=== PATIENT | female | born 1990 | race Caucasian/White ===

== ENCOUNTER 2016-06-08 01:03 | Inpatient (IN) | payer SELFPAY ==
--- NOTE | ~2016-06-08 | DS ---
Discharge Summary [facility] [address] [place]. [address] NAME: ALEXANDER GONZALEZ : 88 STATUS : ADM IN [facility]#: [id number] AGE: 25 ADM/REG DATE : 06/08/16 MR#: [id number] REPORT SERV DATE: 06/12/16 DICTATED BY: Liz HENDERSON DATE: 06/12/16 REPORT STATUS : Draft TRANSCRIBED BY: LUL DATE: 06/12/16 ADMISSION DATE: 06/08/2016 DISCHARGE DATE: 06/12/2016 DIAGNOSES AT THE TIME OF DISCHARGE: Diabetic ketoacidosis, present on admission, resolved, insulin-requiring diabetes, uncontrolled, influenza B acute, present on admission, resolved, hypokalemia, resolved, hypomagnesemia, resolved, and hypophosphatemia, resolved. CONSULTS: None. PROCEDURES: None. BRIEF SUMMARY: A 25-year-old female with known diabetes with difficulty arranging insulin therapy due to cost, was admitted with acute illness and found to be in DKA, placed in intermediate care on aggressive IV insulin replacement, electrolyte replacement, and aggressive IV fluids. The patient responded appropriately to therapy with correction of her ketoacidosis and was subsequently transitioned to a combination of basal bolus and correction insulin. She was also found to be influenza positive, which likely is the nidus behind her ketoacidosis. This was treated with Tamiflu 75 mg b.i.d. for a five-day protocol. The patient was transitioned to a non-monitored floor. She improved. She was seen and evaluated by diabetes education. On 06/12, she was felt stable to discharge home. Her outpatient therapy will be Levemir FlexPen 35 units b.i.d. and NovoLog FlexPen 7 units with meals. She will follow up with her primary care provider in approximately two weeks. We will also provide her with a major test strips and lancets. The patient will also get Tamiflu. She has three additional doses, to take one this afternoon and two for tomorrow, which she will complete her five days of therapy. Further recommendations for treatment pending outpatient evaluation. ILIANA/LUL Liz Henderson M.D. / [id number] CC: Liz Henderson M.D.
--- NOTE | ~2016-06-08 | HP ---
History And Physical [facility] [address] [place]. [address] NAME: ALEXANDER MARIE : 88 STATUS : ADM IN [facility]#: [id number] AGE: 25 ADM/REG DATE : 06/08/16 MR#: [id number] REPORT SERV DATE: 06/08/16 DICTATED BY: KEVIN GILBERT DATE: 06/08/16 REPORT STATUS : Draft TRANSCRIBED BY: MODL DATE: 06/08/16 DATE OF ADMISSION: 06/08/2016 CHIEF COMPLAINT: High blood sugars. HISTORY OF PRESENT ILLNESS: This is a 25-year-old female with a history of insulin dependent diabetes mellitus, presents to the emergency room at [facility], with the above-mentioned complaint. History is obtained from the patient and reviewing data available on the [employer] system. According to the patient, she was recently diagnosed with diabetes a few days before gi last year. Since then, she had been on insulin therapy. She was supposed to take Levemir insulin along with short acting, but says she could not afford her Levemir and in the last few days, she has not used it. Since then, her blood sugars have been climbing. She had nausea and started feeling very poorly. Today, she was brought to the emergency room to be evaluated because her blood sugars were too high to be recorded. In the emergency room, initial evaluation showed a blood sugar greater than 600. She had moderate acetone in her serum. Her anion gap was 24 and she was in diabetic ketoacidosis. Hospitalist Service is asked to admit her for further evaluation and treatment. At the time of my evaluation, she denied any chest pain, palpitations, or orthopnea. She had no cough, hemoptysis, night sweats, or weight loss. She denied any recent falls or loss of consciousness. She denied any fevers, chills, nausea, vomiting, diarrhea, hematemesis, hematochezia, or hematuria. She had no dysuria. No other history of recent travel or exposures other than those mentioned above. PAST MEDICAL HISTORY: Significant for history of insulin-dependent diabetes mellitus. SOCIAL HISTORY: She has about [id number] smoking history and continues to do so. Denies alcohol use or recreational drug use. She works in a convenience store. FAMILY HISTORY: Noncontributory. MEDICATIONS AT HOME: Her medications at home were reviewed by me in the chart today and reordered by me. REVIEW OF SYSTEMS: As in history of present illness. All other systems reviewed in detailed and are quite unremarkable. PHYSICAL EXAMINATION: GENERAL: This is a pleasant 25-year-old, not in any acute distress. HEENT: Her head is atraumatic, normocephalic. She is alert, awake, oriented to time, place, and person. Her pupils are equal, reacting to light and accommodating. External ocular muscles are intact. Membranes are moist and pink. Sclerae nonicteric. History And Physical [address] [place]. [address] NAME: ALEXANDER MARIE : 88 STATUS : ADM IN [facility]#: [id number] AGE: 25 ADM/REG DATE : 06/08/16 MR#: [id number] REPORT SERV DATE: 06/08/16 DICTATED BY: KEVIN GILBERT DATE: 06/08/16 REPORT STATUS : Draft TRANSCRIBED BY: LUL DATE: 06/08/16 NECK: Supple with no jugular venous distention, lymphadenopathy, or thyromegaly. LUNGS: Clear to auscultation with no wheezes, rubs, or crackles. HEART: Heart sounds were regular with no murmurs, rubs, or gallops. ABDOMEN: Soft, nontender. Bowel sounds are present. EXTREMITIES: Showed no cyanosis, clubbing, or edema. NEUROLOGIC: Grossly intact. No focal sensory or motor deficits. Higher functions appeared intact. Gait was normal. VITAL SIGNS: Showed a temperature of 97.5, pulse 110, respirations 20 a minute, and blood pressure was 136/91. Oxygen saturations were 99% on room air. LABORATORY DATA: Reviewed on the [employer] system showed a pH of 7.14 on arterial blood gas, pCO2 was 11.2, pO2 was 117, and bicarb was 3.7. Her sodium was 134, potassium 3.6, chloride 105, CO2 was 5, BUN was 6 with a creatinine of 1.22, and blood glucose was 600. Her alkaline phosphatase was 124. AST and ALT were within normal limits. She had moderate acetone in her serum. Troponin was 0.02 and CBC showed essentially normal values. Urinalysis today showed 30 protein, 80 ketones, otherwise unremarkable. A 12-lead EKG done in the emergency room was reviewed and interpreted by me. There is sinus bradycardia with a rate of 103, otherwise without any acute ST elevations. Films of the chest x-ray were reviewed by me on the PACS today and interpreted by me. There is normal bony architecture with no cardiomegaly. Lung lara showed no infiltrates consolidations or pleural effusions. IMPRESSION: 1. Diabetic ketoacidosis. 2. Hyperglycemia with blood sugars greater than 600. PLAN: We will admit Ms. Marie to the Hospitalist Service to Medical Intermediate Care Unit for close monitoring. We will follow diabetic ketoacidosis protocol. She has an anion gap of 24. We will start her on fluid boluses, insulin infusion, follow basic metabolic profile, and replace electrolytes and potassium as needed. We will keep her n.p.o. for now. We will go ahead and follow her venous pH as well and replace bicarb as needed. Right now, she will receive 2 amps in scheduled order. I have also placed her on unfractionated heparin for DVT prophylaxis while here. She will need shop laborer to address issues with her including some help for procuring here Levemir. I have discussed the above plans with the patient, her questions were answered, and she is agreeable to the above recommendations. Please see today's orders for details. Hospitalist Service will be following her during her stay here. /LUL Kevin Gilbert M.D. History And Physical [address] [address] NAME: ALEXANDER MARIE : 88 STATUS : ADM IN [facility]#: [id number] AGE: 25 ADM/REG DATE : 06/08/16 MR#: [id number] REPORT SERV DATE: 06/08/16 DICTATED BY: KEVIN GILBERT DATE: 06/08/16 REPORT STATUS : Draft TRANSCRIBED BY: MODJaxson DATE: 06/08/16 / [id number] CC: Liz Henderson M.D.
[2016-06-08 01:27] LABS: BE (BASE EXCESS) -22.7 MEQ/L (0 +/- 2.5); HCO3 (ACTUAL BICARBONATE) 3.7 MEQ/L (23-27); HEMOBLOGIN CONTENT 15.1 G/DL (12-16); INSTRUMENT SERIAL # 8087; METHEMOGLOBIN 0.4 % (0-3); O2 CONTENT 20.7 VOL% (18-24); PCO2 (CO2 TENSION) 11 MMHG (35-45); PO2 (O2 TENSION) 117 MMHG (79-93); SAMPLE Arterial; pH 7.14 (7.37-7.43)
[2016-06-08 01:29] LABS: ACETONE MODERATE
[2016-06-08 01:34] LABS: A/G RATIO 0.8 (0.7-1.9); ALBUMIN 3.4 G/DL (3.5-5.0); ALKALINE PHOSPHATASE 124 U/L (45-117); BUN (BLOOD UREA NITROGEN) 6 MG/DL (6-23); CHLORIDE, SERUM 105 MMOL/L (96-112); CREATININE 1.22 MG/DL (0.55-1.02); GFR AFRICAN AMERICAN 71 ML/MIN (>=60); GFR NON AFRICAN AMERICAN 61 ML/MIN (>=60); GLOBULIN 4.5 G/DL (2.5-4.1); POTASSIUM, SERUM 3.6 MMOL/L (3.5-5.3); SGOT(AST) 10 U/L (5-40); SGPT(ALT) 20 U/L (5-65); SODIUM, SERUM 134 MMOL/L (135-148); TOTAL BILIRUBIN 0.4 MG/DL (0-1.2); TOTAL PROTEIN 7.9 G/DL (6.0-8.5)
[2016-06-08 01:34] LABS: HCG SERUM QUANTITATIVE <1.0 IU/L (0-6); TROPONIN I <0.02 NG/ML (<0.05)
[2016-06-08 01:36] LABS: CO2 (CARBON DIOXIDE) 5 MMOL/L (24-34); GLUCOSE, SERUM 600 MG/DL (60-99)
[2016-06-08 02:02] LABS: BASOPHILS 0.8 %; BASOPHILS ABSOLUTE 0.06 10/3/uL (0.0-0.16); EOSINOPHILS 0 %; ER CBC TAT 0 Hrs 03 Mins; HEMOGLOBIN 15.1 g/dL (12.0-16.0); IMMATURE GRANULOCYTES 0.8 %; LYMPHOCYTES 17.6 %; LYMPHOCYTES ABSOLUTE 1.35 10/3/uL (0.67-4.30); MEAN CORPUS HGB CONC 34.3 g/dL (32.0-36.0); MEAN CORPUSCULAR HEMOGLOB 29.8 pg (26.0-34.0); MONOCYTES 7.8 %; NEUTROPHILS ABSOLUTE 5.58 10/3/uL (2.02-8.40); PLATELET COUNT 174 10/3/uL (150-400); RED CELL COUNT 5.06 10/6/uL (4.0-5.6); WHITE BLOOD CELLS 7.7 10/3/uL (4.5-10.5)
[2016-06-08 02:03] LABS: IMMATURE GRANULOCYTES ABSOLUTE 0.06 10/3/uL (0.0-0.11); MANUAL DIFF NO %
[2016-06-08 02:26] LABS: BAND NEUTROPHILS 17 %; ER DIFF TAT 0 Hrs 27 Mins; LYMPHOCYTES 18 %; LYMPHOCYTES ABSOLUTE (CALC) 1.39 10/3/uL (0.67-4.30); MONOCYTES 10 %; MONOCYTES ABSOLUTE (CALC) 0.77 10/3/uL (0.21-1.20); NEUTROPHILS ABSOLUTE (CALC) 5.54 10/3/uL (2.02-8.40); RBC MORPHOLOGY NORM (NORMAL); SEGMENTED NEUTROPHIL (0) 55 %; TOTAL NUCLEATED CELLS 100
[2016-06-08 02:27] LABS: PLATELET ESTIMATE ADQ (ADEQUATE)
[2016-06-08 02:59] LABS: ASCORBIC ACID (UR NOT ORDER) NEG (NEG); BILIRUBIN, URINE NEGATIVE (NEG); ER URINALYSIS TAT 0 Hrs 00 Mins; KETONE, URINE 80 MG/DL (NEG); LEUKOCYTE ESTERASE(NOT OR NEG (NEG); NITRITE (URINE) NEG (NEG); WBC (NOT ORDERED) (RFLEX) 1 (0-5)
[2016-06-08] MEDS ORDERED: NOVOLOG SC (03:16)
[2016-06-08 05:55] LABS: HEMATOCRIT 41.5 % (36.0-48.0); HEMOGLOBIN 14.1 g/dL (12.0-16.0); MEAN CORPUSCULAR HEMOGLOB 29.2 pg (26.0-34.0); MEAN CORPUSCULAR VOLUME 85.9 fL (80-100); MEAN PLATELET VOLUME 12.8 fL (9.2-13.0); PLATELET COUNT 153 10/3/uL (150-400); RBC DISTRIBUTION WIDTH 15.8 % (12.0-16.0); RED CELL COUNT 4.83 10/6/uL (4.0-5.6); WHITE BLOOD CELLS 7.9 10/3/uL (4.5-10.5)
[2016-06-08 05:56] LABS: MANUAL DIFF YES %
[2016-06-08 06:20] LABS: BUN (BLOOD UREA NITROGEN) 4 MG/DL (6-23); CALCIUM, SERUM 7.8 MG/DL (8.5-10.4); CHLORIDE, SERUM 111 MMOL/L (96-112); CREATININE 0.87 MG/DL (0.55-1.02); GFR AFRICAN AMERICAN 107 ML/MIN (>=60); GFR NON AFRICAN AMERICAN 92 ML/MIN (>=60); SODIUM, SERUM 138 MMOL/L (135-148); ULTRASENSITIVE TSH 0.656 MCIU/ML (0.358-3.740)
[2016-06-08 06:33] LABS: POTASSIUM, SERUM 2.8 MMOL/L (3.5-5.3)
[2016-06-08 06:34] LABS: CO2 (CARBON DIOXIDE) 6 MMOL/L (24-34); GLUCOSE, SERUM 306 MG/DL (60-99)
[2016-06-08 07:36] LABS: BAND NEUTROPHILS 1 %; LYMPHOCYTES 35 %; LYMPHOCYTES ABSOLUTE (CALC) 2.77 10/3/uL (0.67-4.30); MONOCYTES 6 %; MONOCYTES ABSOLUTE (CALC) 0.47 10/3/uL (0.21-1.20); NEUTROPHILS ABSOLUTE (CALC) 4.66 10/3/uL (2.02-8.40); PLATELET ESTIMATE ADQ (ADEQUATE); RBC MORPHOLOGY NORM (NORMAL); SEGMENTED NEUTROPHIL (0) 58 %; TOTAL NUCLEATED CELLS 100
[2016-06-08 09:54] LABS: BUN (BLOOD UREA NITROGEN) 3 MG/DL (6-23); CALCIUM, SERUM 7.6 MG/DL (8.5-10.4); CHLORIDE, SERUM 112 MMOL/L (96-112); CREATININE 0.86 MG/DL (0.55-1.02); GFR AFRICAN AMERICAN 108 ML/MIN (>=60); GFR NON AFRICAN AMERICAN 93 ML/MIN (>=60); GLUCOSE, SERUM 217 MG/DL (60-99); SODIUM, SERUM 138 MMOL/L (135-148)
[2016-06-08 09:56] LABS: CO2 (CARBON DIOXIDE) 6 MMOL/L (24-34)
[2016-06-08 14:17] LABS: BUN (BLOOD UREA NITROGEN) 4 MG/DL (6-23); CALCIUM, SERUM 7.7 MG/DL (8.5-10.4); CHLORIDE, SERUM 114 MMOL/L (96-112); CREATININE 0.81 MG/DL (0.55-1.02); GFR AFRICAN AMERICAN 116 ML/MIN (>=60); GFR NON AFRICAN AMERICAN 100 ML/MIN (>=60); GLUCOSE, SERUM 193 MG/DL (60-99); SODIUM, SERUM 139 MMOL/L (135-148)
[2016-06-08 14:18] LABS: CO2 (CARBON DIOXIDE) 13 MMOL/L (24-34)
[2016-06-08 18:32] LABS: BUN (BLOOD UREA NITROGEN) 3 MG/DL (6-23); CALCIUM, SERUM 7.7 MG/DL (8.5-10.4); CHLORIDE, SERUM 112 MMOL/L (96-112); CO2 (CARBON DIOXIDE) 15 MMOL/L (24-34); CREATININE 0.81 MG/DL (0.55-1.02); GFR AFRICAN AMERICAN 116 ML/MIN (>=60); GFR NON AFRICAN AMERICAN 100 ML/MIN (>=60); GLUCOSE, SERUM 131 MG/DL (60-99); SODIUM, SERUM 139 MMOL/L (135-148)
[2016-06-08 22:40] LABS: BUN (BLOOD UREA NITROGEN) 3 MG/DL (6-23); CALCIUM, SERUM 7.6 MG/DL (8.5-10.4); CHLORIDE, SERUM 112 MMOL/L (96-112); CO2 (CARBON DIOXIDE) 17 MMOL/L (24-34); CREATININE 0.79 MG/DL (0.55-1.02); GFR AFRICAN AMERICAN 120 ML/MIN (>=60); GFR NON AFRICAN AMERICAN 103 ML/MIN (>=60); POTASSIUM, SERUM 3.4 MMOL/L (3.5-5.3); SODIUM, SERUM 139 MMOL/L (135-148)
[2016-06-08 22:44] LABS: GLUCOSE, SERUM 220 MG/DL (60-99)
[2016-06-09 02:13] LABS: INFLUENZA A SCREEN NEGATIVE (NEGATIVE)
[2016-06-09 02:14] LABS: INFLUENZA B SCREEN POSITIVE (NEGATIVE)
[2016-06-09 06:23] LABS: BASOPHILS 0.6 %; BASOPHILS ABSOLUTE 0.03 10/3/uL (0.0-0.16); EOSINOPHILS 0.4 %; EOSINOPHILS ABSOLUTE 0.02 10/3/uL (0.0-0.53); IMMATURE GRANULOCYTES 0.8 %; IMMATURE GRANULOCYTES ABSOLUTE 0.04 10/3/uL (0.0-0.11); LYMPHOCYTES 31.1 %; LYMPHOCYTES ABSOLUTE 1.56 10/3/uL (0.67-4.30); MEAN CORPUSCULAR HEMOGLOB 29.4 pg (26.0-34.0); MEAN CORPUSCULAR VOLUME 83.9 fL (80-100); MEAN PLATELET VOLUME 12.2 fL (9.2-13.0); NEUTROPHILS 59.1 %; NEUTROPHILS ABSOLUTE 2.97 10/3/uL (2.02-8.40); PLATELET COUNT 143 10/3/uL (150-400); RBC DISTRIBUTION WIDTH 16.1 % (12.0-16.0); RED CELL COUNT 4.77 10/6/uL (4.0-5.6)
[2016-06-09 06:24] LABS: MANUAL DIFF NO %
[2016-06-09 06:43] LABS: BUN (BLOOD UREA NITROGEN) 3 MG/DL (6-23); CALCIUM, SERUM 7.7 MG/DL (8.5-10.4); CHLORIDE, SERUM 114 MMOL/L (96-112); CREATININE 0.68 MG/DL (0.55-1.02); GFR AFRICAN AMERICAN 140 ML/MIN (>=60); GFR NON AFRICAN AMERICAN 121 ML/MIN (>=60); POTASSIUM, SERUM 3.8 MMOL/L (3.5-5.3); SODIUM, SERUM 141 MMOL/L (135-148)
[2016-06-09 06:56] LABS: CO2 (CARBON DIOXIDE) 13 MMOL/L (24-34); GLUCOSE, SERUM 155 MG/DL (60-99); PHOSPHORUS, SERUM 0.5 MG/DL (2.5-4.5)
[2016-06-09 11:24] LABS: ASCORBIC ACID (UR NOT ORDER) NEG (NEG); BILIRUBIN, URINE NEGATIVE (NEG); KETONE, URINE 80 MG/DL (NEG); LEUKOCYTE ESTERASE(NOT OR LARGE (NEG); WBC (NOT ORDERED) (RFLEX) 55 (0-5)
[2016-06-09 11:58] LABS: BUN (BLOOD UREA NITROGEN) 2 MG/DL (6-23); CALCIUM, SERUM 7.4 MG/DL (8.5-10.4); CHLORIDE, SERUM 111 MMOL/L (96-112); CO2 (CARBON DIOXIDE) 15 MMOL/L (24-34); CREATININE 0.68 MG/DL (0.55-1.02); GFR AFRICAN AMERICAN 140 ML/MIN (>=60); GFR NON AFRICAN AMERICAN 121 ML/MIN (>=60); GLUCOSE, SERUM 311 MG/DL (60-99); POTASSIUM, SERUM 3.4 MMOL/L (3.5-5.3); SODIUM, SERUM 138 MMOL/L (135-148)
[2016-06-10 08:36] LABS: BASOPHILS 0.3 %; BASOPHILS ABSOLUTE 0.02 10/3/uL (0.0-0.16); EOSINOPHILS 0.2 %; EOSINOPHILS ABSOLUTE 0.01 10/3/uL (0.0-0.53); HEMOGLOBIN 12.1 g/dL (12.0-16.0); IMMATURE GRANULOCYTES 0.6 %; IMMATURE GRANULOCYTES ABSOLUTE 0.04 10/3/uL (0.0-0.11); LYMPHOCYTES ABSOLUTE 2.28 10/3/uL (0.67-4.30); MEAN CORPUS HGB CONC 35.1 g/dL (32.0-36.0); MEAN CORPUSCULAR HEMOGLOB 28.7 pg (26.0-34.0); MEAN CORPUSCULAR VOLUME 81.9 fL (80-100); MEAN PLATELET VOLUME 11.9 fL (9.2-13.0); MONOCYTES ABSOLUTE 0.43 10/3/uL (0.21-1.20); NEUTROPHILS 54.9 %; NEUTROPHILS ABSOLUTE 3.39 10/3/uL (2.02-8.40); PLATELET COUNT 113 10/3/uL (150-400); RBC DISTRIBUTION WIDTH 16.4 % (12.0-16.0); RED CELL COUNT 4.21 10/6/uL (4.0-5.6); WHITE BLOOD CELLS 6.2 10/3/uL (4.5-10.5)
[2016-06-10 08:37] LABS: HEMATOCRIT 34.5 % (36.0-48.0)
[2016-06-10 08:38] LABS: MANUAL DIFF NO %
[2016-06-10 08:47] LABS: BUN (BLOOD UREA NITROGEN) 1 MG/DL (6-23); CALCIUM, SERUM 7.3 MG/DL (8.5-10.4); CHLORIDE, SERUM 108 MMOL/L (96-112); CREATININE 0.59 MG/DL (0.55-1.02); GFR AFRICAN AMERICAN 147 ML/MIN (>=60); GFR NON AFRICAN AMERICAN 126 ML/MIN (>=60); SODIUM, SERUM 139 MMOL/L (135-148)
[2016-06-10 08:49] LABS: CO2 (CARBON DIOXIDE) 24 MMOL/L (24-34); GLUCOSE, SERUM 217 MG/DL (60-99); POTASSIUM, SERUM 2.8 MMOL/L (3.5-5.3)
[2016-06-11 05:25] LABS: BASOPHILS 0.3 %; BASOPHILS ABSOLUTE 0.02 10/3/uL (0.0-0.16); EOSINOPHILS 1.8 %; EOSINOPHILS ABSOLUTE 0.11 10/3/uL (0.0-0.53); HEMATOCRIT 33.4 % (36.0-48.0); HEMOGLOBIN 11.8 g/dL (12.0-16.0); IMMATURE GRANULOCYTES 0.3 %; IMMATURE GRANULOCYTES ABSOLUTE 0.02 10/3/uL (0.0-0.11); LYMPHOCYTES 48.4 %; LYMPHOCYTES ABSOLUTE 2.88 10/3/uL (0.67-4.30); MEAN CORPUS HGB CONC 35.3 g/dL (32.0-36.0); MEAN CORPUSCULAR HEMOGLOB 28.2 pg (26.0-34.0); MEAN CORPUSCULAR VOLUME 79.7 fL (80-100); MEAN PLATELET VOLUME 11.9 fL (9.2-13.0); MONOCYTES 8.1 %; MONOCYTES ABSOLUTE 0.48 10/3/uL (0.21-1.20); NEUTROPHILS 41.1 %; NEUTROPHILS ABSOLUTE 2.44 10/3/uL (2.02-8.40); PLATELET COUNT 112 10/3/uL (150-400); RBC DISTRIBUTION WIDTH 16.8 % (12.0-16.0); RED CELL COUNT 4.19 10/6/uL (4.0-5.6)
[2016-06-11 05:36] LABS: BUN (BLOOD UREA NITROGEN) 3 MG/DL (6-23); CALCIUM, SERUM 7.9 MG/DL (8.5-10.4); CHLORIDE, SERUM 109 MMOL/L (96-112); CO2 (CARBON DIOXIDE) 23 MMOL/L (24-34); CREATININE 0.44 MG/DL (0.55-1.02); GFR AFRICAN AMERICAN 161 ML/MIN (>=60); GFR NON AFRICAN AMERICAN 139 ML/MIN (>=60); MANUAL DIFF NO %; SODIUM, SERUM 142 MMOL/L (135-148)
[2016-06-11 05:44] LABS: GLUCOSE, SERUM 90 MG/DL (60-99); POTASSIUM, SERUM 2.9 MMOL/L (3.5-5.3)
[2016-06-11 06:34] LABS: PLATELET ESTIMATE SLT DEC (ADEQUATE)
[2016-06-11 06:35] LABS: HELMET CELLS OCC (0-2/OIF); MICROCYTES 1+ (5-10/OIF) (0-5/OIF); POLYCHROMASIA 1+ (2-5/OIF) (0-1/OIF); TEARDROP SHAPED RBCS OCC (0-2/OIF)
[2016-06-12 05:35] LABS: BUN (BLOOD UREA NITROGEN) 6 MG/DL (6-23); CALCIUM, SERUM 7.8 MG/DL (8.5-10.4); CHLORIDE, SERUM 110 MMOL/L (96-112); CO2 (CARBON DIOXIDE) 26 MMOL/L (24-34); CREATININE 0.46 MG/DL (0.55-1.02); GFR AFRICAN AMERICAN 159 ML/MIN (>=60); GFR NON AFRICAN AMERICAN 137 ML/MIN (>=60); SODIUM, SERUM 144 MMOL/L (135-148)
[2016-06-12 05:37] LABS: GLUCOSE, SERUM 126 MG/DL (60-99); POTASSIUM, SERUM 3.6 MMOL/L (3.5-5.3)
[2016-06-12 05:45] LABS: BASOPHILS 0.6 %; BASOPHILS ABSOLUTE 0.04 10/3/uL (0.0-0.16); EOSINOPHILS 2.5 %; EOSINOPHILS ABSOLUTE 0.16 10/3/uL (0.0-0.53); HEMATOCRIT 34.5 % (36.0-48.0); HEMOGLOBIN 11.9 g/dL (12.0-16.0); IMMATURE GRANULOCYTES 0.6 %; IMMATURE GRANULOCYTES ABSOLUTE 0.04 10/3/uL (0.0-0.11); LYMPHOCYTES 46.9 %; LYMPHOCYTES ABSOLUTE 3.04 10/3/uL (0.67-4.30); MEAN CORPUS HGB CONC 34.5 g/dL (32.0-36.0); MEAN CORPUSCULAR HEMOGLOB 29.1 pg (26.0-34.0); MEAN PLATELET VOLUME 12.1 fL (9.2-13.0); MONOCYTES 7.6 %; MONOCYTES ABSOLUTE 0.49 10/3/uL (0.21-1.20); NEUTROPHILS 41.8 %; NEUTROPHILS ABSOLUTE 2.71 10/3/uL (2.02-8.40); PLATELET COUNT 130 10/3/uL (150-400); RED CELL COUNT 4.09 10/6/uL (4.0-5.6); WHITE BLOOD CELLS 6.5 10/3/uL (4.5-10.5)
[2016-06-12 05:54] LABS: MANUAL DIFF NO %; MEAN CORPUSCULAR VOLUME 84.4 fL (80-100)
[2016-06-12] MEDS ORDERED: NOVOPEN SC (09:32)
[2016-06-12] MEDS ORDERED: LEVEMFLXPN SC (09:33)
[2016-06-12] MEDS ORDERED: TAMIFLU PO (09:34)
[2016-06-12] MEDS ORDERED: INSNOVR SC (11:58)
[2016-06-12] MEDS ORDERED: INSNOVN SC (11:58)
== END 2016-06-12 14:14 | disposition home or self-care (01) | DRG 639 ==
LOC: ER 01:03 → IMCU 03:42 → 4EA 06-10 14:46
PROVIDERS: Internal Medicine; Internal Medicine Pulmonary Disease; Nurse Practitioner Acute Care; Specialist
PROC: 02HV33Z Insertion of Infusion Device into Superior Vena Cava, Percutaneous Approach (ICD-10-PCS; principal; 2016-06-08)
PROC: 4A02X4A Measurement of Cardiac Electrical Activity, Guidance, External Approach (ICD-10-PCS; 2016-06-08)
DX: E13.10 Other specified diabetes mellitus with ketoacidosis without coma (principal); E83.42 Hypomagnesemia; J11.1 Influenza due to unidentified influenza virus with other respiratory manifestations; E87.6 Hypokalemia; E83.39 Other disorders of phosphorus metabolism; F17.210 Nicotine dependence, cigarettes, uncomplicated
CPT/HCPCS: 36569; 36600; 71010; 80048; 80053; 81001; 82009; 82805; 82947; 82962; 83036; 83735; 84100; 84443; 84484; 84702; 85025; 87040; 87070; 87086; 87641; 87804; 87880; 96365; 96375; 99291; A9270-GY; C1751; J2405; J3480

== ENCOUNTER 2016-06-13 21:00 | Emergency (ER) | payer SELFPAY ==
[~2016-06-13 21:00] MED LIST: INSNOVN SC; INSNOVR SC; LEVEMFLXPN SC; NOVOLOG SC; NOVOPEN SC; TAMIFLU PO
[2016-06-14 00:52] LABS: BASOPHILS 0.5 %; BASOPHILS ABSOLUTE 0.03 10/3/uL (0.0-0.16); EOSINOPHILS 1.9 %; EOSINOPHILS ABSOLUTE 0.12 10/3/uL (0.0-0.53); HEMOGLOBIN 12.8 g/dL (12.0-16.0); IMMATURE GRANULOCYTES 0.6 %; IMMATURE GRANULOCYTES ABSOLUTE 0.04 10/3/uL (0.0-0.11); LYMPHOCYTES 57.6 %; LYMPHOCYTES ABSOLUTE 3.57 10/3/uL (0.67-4.30); MEAN CORPUS HGB CONC 33.6 g/dL (32.0-36.0); MEAN CORPUSCULAR HEMOGLOB 29.4 pg (26.0-34.0); MEAN PLATELET VOLUME 11.4 fL (9.2-13.0); MONOCYTES ABSOLUTE 0.62 10/3/uL (0.21-1.20); NEUTROPHILS 29.4 %; NEUTROPHILS ABSOLUTE 1.82 10/3/uL (2.02-8.40); RED CELL COUNT 4.36 10/6/uL (4.0-5.6); WHITE BLOOD CELLS 6.2 10/3/uL (4.5-10.5)
[2016-06-14 00:53] LABS: HEMATOCRIT 38.1 % (36.0-48.0); MANUAL DIFF NO %; MEAN CORPUSCULAR VOLUME 87.4 fL (80-100); PLATELET COUNT 222 10/3/uL (150-400)
[2016-06-14 01:05] LABS: ACETONE NEG
[2016-06-14 01:11] LABS: A/G RATIO 0.6 (0.7-1.9); ALBUMIN 2.6 G/DL (3.5-5.0); ALKALINE PHOSPHATASE 103 U/L (45-117); BUN (BLOOD UREA NITROGEN) 5 MG/DL (6-23); CALCIUM, SERUM 8.3 MG/DL (8.5-10.4); CHLORIDE, SERUM 104 MMOL/L (96-112); CO2 (CARBON DIOXIDE) 27 MMOL/L (24-34); GFR AFRICAN AMERICAN 139 ML/MIN (>=60); GFR NON AFRICAN AMERICAN 120 ML/MIN (>=60); GLOBULIN 4.4 G/DL (2.5-4.1); GLUCOSE, SERUM 230 MG/DL (60-99); POTASSIUM, SERUM 3.9 MMOL/L (3.5-5.3); SGOT(AST) 27 U/L (5-40); SGPT(ALT) 24 U/L (5-65); SODIUM, SERUM 144 MMOL/L (135-148); TOTAL BILIRUBIN 0.3 MG/DL (0-1.2)
[2016-06-14 01:11] LABS: ASCORBIC ACID (UR NOT ORDER) NEG (NEG); BILIRUBIN, URINE NEGATIVE (NEG); ER URINALYSIS TAT 0 Hrs 00 Mins; KETONE, URINE NEGATIVE (NEG); LEUKOCYTE ESTERASE(NOT OR NEG (NEG); NITRITE (URINE) NEG (NEG); WBC (NOT ORDERED) (RFLEX) 4 (0-5)
== END 2016-06-14 02:40 | disposition home or self-care (01) ==
LOC: ER 21:00
PROVIDERS: Nurse Practitioner
DX: H53.8 Other visual disturbances (principal); E10.9 Type 1 diabetes mellitus without complications; Z88.0 Allergy status to penicillin; Z79.4 Long term (current) use of insulin
CPT/HCPCS: 70450; 80053; 81001; 82009; 82962; 83690; 85025; 99284; A9270-GY